=== PATIENT | male | born 1995 | race Caucasian/White ===

== ENCOUNTER 2020-03-16 04:37 | Emergency (ER) | payer SELFPAY ==
[2020-03-16] MEDS ORDERED: Ketorolac Tromethamine 30 MG/ML VIAL ONE (05:26)
--- NOTE | 2020-03-16 07:49 | RAD ---
Exam: Chest one view HISTORY:Pain. Comparison: None FINDINGS: Cardiac silhouette: Normal Aorta: Unremarkable Pulmonary vessels: Normal Costophrenic angles: Clear LUNGS: No masses or consolidation. Pneumothorax: None Osseous abnormalities: None IMPRESSION: No acute cardiopulmonary process.
--- NOTE | 2020-03-19 16:17 | EKG ---
Test Reason : Blood Pressure : / mmHG Vent. Rate : 074 BPM Atrial Rate : 074 BPM P-R Int : 132 ms QRS Dur : 088 ms QT Int : 354 ms P-R-T Axes : 073 073 062 degrees QTc Int : 392 ms Normal sinus rhythm Normal ECG Confirmed by SHY ALBERTS M.D. ([id number]), newspaper copy editor STEPHAN NIXON ([id number]) on 03/19/2020 4:17:15 PM Referred By: Confirmed By:SHY ALBERTS M.D.
== END 2020-03-16 05:49 | disposition home or self-care (01) ==
LOC: ERS 04:37
DX: R07.89 Other chest pain (principal); F90.9 Attention-deficit hyperactivity disorder, unspecified type
CPT/HCPCS: 71045; 93005; 96372; J1885